=== PATIENT | male | born 1985 | race Hispanic/Latino ===

== ENCOUNTER 2020-08-17 09:01 | Emergency (ER) | payer OTHER ==
[~2020-08-17] VITALS: Ht 172.7 cm; Wt 81.2 kg
[2020-08-17] MEDS ORDERED: ZESTRIL5 MG PO (09:24)
[2020-08-17] MEDS ORDERED: CYCLOBENZAPRINE10 MG PO (09:32)
== END 2020-08-17 10:07 | disposition home or self-care (01) ==
LOC: ED 09:01
DX: S13.9XXA Sprain of joints and ligaments of unspecified parts of neck, initial encounter (principal); S30.0XXA Contusion of lower back and pelvis, initial encounter; W10.8XXA Fall (on) (from) other stairs and steps, initial encounter; I10 Essential (primary) hypertension; Z79.899 Other long term (current) drug therapy
CPT/HCPCS: 99283; A9270